=== PATIENT | female | born 1945 | race Caucasian/White ===

== ENCOUNTER 2018-04-28 08:50 | Day surgery (SDC) | payer MEDICARE, OTHER ==
[~2018-04-28] VITALS: Ht 152.4 cm; Wt 61.8 kg
[2018-04-28 09:47] VITALS: Ht 152.4 cm; Wt 61.8 kg
[2018-04-28] MEDS ORDERED: RANI150T5 PO (09:53)
[2018-04-28] MEDS ORDERED: [UNRECOGNIZED DRUG - OTHER] (09:53)
[2018-04-28 09:59] VITALS: BP 168/79; PULSE 54; RESP 23
--- NOTE | 2018-04-28 10:05 | PREAC ---
Date/Time of Note Date/Time of Note DATE: 04/28/18 TIME: 10:05 Anesthesia Eval and Record Evaluation Time Pre-Procedure Interview DATE: 04/28/18 TIME: 10:05 Age 72 Sex female NPO: 8 hrs Preoperative diagnosis abd pain Planned procedure egd, colonoscopy Past Medical History Past Medical History: Includes Cardio: HTN, Dyslipidemia Surgery & Anesthesia Issues No known issue Meds Anticoagulation: No Beta Fatoumata within 24 hr: No Reason Beta Fatoumata not given: Pt. not on B-Fatoumata Reported Medications [Onesartan/Hctz] No Conflict Check 04/28/18 Ranitidine Hcl* (Ranitidine Hcl*) 150 Mg Tablet, 150 MG PO HS, #30 TAB 04/28/18 Meds reviewed: Yes Allergies Coded Allergies: No Known Drug Allergies (Verified Allergy, Unknown, 04/28/18) Allergies Reviewed: Yes Labs/Studies Labs Reviewed: Reviewed by anesthesiologist test: Negative Studies: ECG Pre-procedure Exam Airway: Adequate mouth opening, Adequate thyromental dist Mallampati: Mallampati II Teeth: Normal Lung: Normal Heart: Normal ASA Physical Status ASA physical status: 2 Emergency: None Pre-operative Attestations Prior to commencing anesthesia and surgery, the patient was re-evaluated, there was verification of: *The patient's identity *The results of appropriate recent lab work and preoperative vital signs *The above evaluation not changing prior to induction *Anesthetic plan, risk benefits, alternative and complications discussed with patient/family; questions answered; patient/family understands, accepts and wishes to proceed. TUCKER LU Apr 28, 2018 10:05
--- NOTE | 2018-04-28 21:59 | PAC ---
Date/Time of Note Date/Time of Note DATE: 04/28/18 TIME: 21:59 Post-Anesthesia Notes Post-Anesthesia Note Last documented vital signs Vital Signs Date Temp Pulse Resp B/P (MAP) Pulse Ox O2 O2 Flow FiO2 Time Delivery Rate 04/28/18 98.6 54 23 168/79 97 Room Air 09:59 (108) Activity: WNL Respiratory function: WNL Cardiovascular function: WNL Mental status: Baseline Pain reasonably controlled: Yes Hydration appropriate: Yes Nausea/Vomiting absent: Yes TUCKER LU Apr 28, 2018 21:59
--- NOTE | 2018-04-29 12:10 | CONS ---
DATE OF ADMISSION: 04/28/2018 DATE OF CONSULTATION: PATIENT NAME: CANDY ESCOBAR TYPE OF CONSULTATION: Preoperative gastroenterology. Dear Dr. Garcia: I thank you very much for this kind referral. HISTORY OF PRESENT ILLNESS: Ms. Candy Escobar is a 72-year-old female patient who has been referred to me for further evaluation of change in the bowel habit. No past history of colon neoplasm. The p atient needs screening colonoscopy. Her appetite has been good and she is not losing any weight. Th e patient states she has got upper abdominal pain, not completely responding to therapy with omeprazo le. PAST MEDICAL HISTORY: She has history of peptic ulcer disease. Not on nonsteroidal anti-inflammator y agents. No history of gallstones or liver disease. She is hypertensive. Not a diabetic. No hear t disease, lung problem or kidney disease. She is status post surgery, radiation and chemotherapy fo r breast cancer. She also had tummy tuck surgery. SOCIAL HISTORY: Nonsmoker. No alcohol abuse. FAMILY HISTORY: No family history of gastrointestinal tract neoplasm. ALLERGIES: NO DRUG ALLERGIES. MEDICATIONS: 1. Omeprazole 20 mg p.o. daily. 2. Olmesartan 20 mg p.o. daily. 3. Hydrochlorothiazide 12.5 mg p.o. daily. PHYSICAL EXAMINATION: VITAL SIGNS: She is 5 feet tall and weighs 120 pounds, BMI 23, blood pressure 132/82. HEART: Normal heart sounds. LUNGS: Clear. ABDOMEN: Soft. No masses. Normal bowel sounds. NEUROLOGIC: Normal. IMPRESSION: 1. Change in the bowel habit. 2. The patient needs screening colonoscopy. 3. Upper abdominal pain, not completely responding to therapy with omeprazole. 4. History of peptic ulcer disease. 5. Hypertension. 6. Status post surgery, radiation and chemotherapy for breast cancer. 7. Status post tummy tuck surgery. PLAN: 1. Screening colonoscopy and upper endoscopy for further evaluation. 2. Follow up with the primary MD for watching the BMI and for the management of hypertension. The procedures and possible complications are well explained to the patient. She understands and con sents to the procedures. I thank you once again. With warmest personal regards, Dictated By: CRICKET FUNES/NTS Conf#: [id number] DID#: [id number]
== END 2018-04-28 11:02 | disposition home or self-care (01) ==
LOC: GIL 08:50
PROVIDERS: ATTEND Internal Medicine Gastroenterology
DX: Z12.11 Encounter for screening for malignant neoplasm of colon (principal); K29.30 Chronic superficial gastritis without bleeding; K62.1 Rectal polyp; K44.9 Diaphragmatic hernia without obstruction or gangrene; K21.0 Gastro-esophageal reflux disease with esophagitis; K64.8 Other hemorrhoids; I10 Essential (primary) hypertension
CPT/HCPCS: 88305; 88312